=== PATIENT | male | born 1970 | race African-American/Black ===

== ENCOUNTER 2018-12-07 02:09 | Emergency (ER) | payer BC ==
[~2018-12-07] VITALS: Ht 185.4 cm; Wt 104.3 kg
[~2018-12-07 02:09] MED LIST: ACETAMINOPHEN-120 ML PO; CLARITIN10 M2 PO; FLONASE 0.05%50 MCG NASAL; KEFLEX500 MG PO; LOTRIMIN30 GM TP; NOHOMEMEDICATIONS; NORCO 5-325 TA1 EACH PO; PHENERGAN 25 MG25 M1 PO; VENTOLIN17 GM INH
[2018-12-07] MEDS ORDERED: IBUPROFEN 200200 M1 PO (02:56)
[2018-12-07] MEDS ORDERED: ATHLETE'S FOOT24 GM TOP (03:15)
== END 2018-12-07 03:33 | disposition home or self-care (01) ==
LOC: ER 02:09
DX: B35.3 Tinea pedis (principal)

== ENCOUNTER → 2019-11-08 | Outpatient (CLI) | payer BC ==
[~2019-11-08] MED LIST changes: +ATHLETE'S FOOT24 GM TOP; +IBUPROFEN 200200 M1 PO
== END ==
LOC: CAT 10:52
DX: N28.1 Cyst of kidney, acquired (principal); N42.89 Other specified disorders of prostate; I25.10 Atherosclerotic heart disease of native coronary artery without angina pectoris

== ENCOUNTER → 2020-02-20 | Outpatient (CLI) | payer OTHER | LOC: LAB 08:38 | PROVIDERS: ATTEND Family Medicine | DX: Z20.828 Contact with and (suspected) exposure to other viral communicable diseases (principal) ==

== ENCOUNTER → 2021-03-07 | Outpatient (CLI) | payer OTHER | LOC: CAT 14:11 | PROVIDERS: ATTEND Family Medicine | DX: N28.1 Cyst of kidney, acquired (principal); N42.89 Other specified disorders of prostate; R10.32 Left lower quadrant pain ==

== ENCOUNTER 2021-03-12 11:43 | Emergency (ER) | payer BC ==
[~2021-03-12] VITALS: Ht 185.4 cm; Wt 97.5 kg
[2021-03-12 12:23] LABS: ABSOLUTE NEUTROPHILS 2.3 thou/uL (1.4-8.2); BASOPHILS 0.9 % (0.0-2.0); EOSINOPHILS 2.6 % (0.0-3.0); HEMATOCRIT 40.4 % (42.0-52.0); HEMOGLOBIN 13.6 gm/dL (14.0-18.0); LYMPHOCYTES 36.1 % (24.0-44.0); MCH 29.3 pg (26.0-34.0); MCHC 33.7 g/dL (28.0-37.0); MCV 87.2 fL (80.0-100.0); MONOCYTES 7.1 % (1.0-8.0); PLATELET COUNT 185 thou/uL (150-400); POLYS 53.3 % (36.0-66.0); RBC 4.63 mil/uL (4.50-6.00); RDW 13.1 % (10.5-14.5); WBC 4.2 thou/uL (4.0-11.0)
[2021-03-12 12:35] LABS: CALCIUM 8.7 mg/dL (8.5-10.1); CREATININE 1.4 mg/dL (0.7-1.3)
[2021-03-12 12:36] LABS: POTASSIUM 4.8 mmol/L (3.5-5.1)
[2021-03-12 12:45] LABS: ALBUMIN 3.4 g/dL (3.4-5.0); TOTAL BILIRUBIN 0.9 mg/dL (0.2-1.0); TOTAL PROTEIN 7.2 g/dL (6.4-8.2)
[2021-03-12 13:40] VITALS: BP 136/95
--- NOTE | 2021-03-12 13:56 | EKG ---
[place] [address] [facility] [place] [address] ELECTROCARDIOGRAM REPORT Name: BJORN BETTENCOURT Room #: REG [facility] [id number] Admission: 03/12/21 Attend Phys: Discharge: Date of : 66 Report #: [id number] [facility] ED Test Date: 2021-03-12 Test Time: 11:51:19 Pat Name: BJORN BETTENCOURT Department: Room: Gender: M Para Operator: MERLE : 1970 Requested By: Jose Camejo Order Number: [id number] MD: Patrick Woods Measurements Intervals [place] Rate: 72 P: 65 NE: 140 QRS: 42 QRSD: 90 T: 39 QT: 384 QTc: 421 Interpretive Statements Sinus rhythm ST elev, probable normal early repol pattern Compared to ECG 09/01/2011 06:57:13 ST (T wave) deviation now present Early repolarization no longer present Electronically Signed On 03-12-2021 13:55:50 CDT by Patrick Woods [email or web address] <ELECTRONICALLY SIGNED> By: Patrick Woods MD, FAC 03/12/21 1355 1151 1151 Patrick Woods MD, FACC /EPI
== END 2021-03-12 13:46 | disposition home or self-care (01) ==
LOC: ER 11:43
PROVIDERS: Emergency Medicine
DX: R07.89 Other chest pain (principal); I48.91 Unspecified atrial fibrillation; E11.9 Type 2 diabetes mellitus without complications; I10 Essential (primary) hypertension; E78.5 Hyperlipidemia, unspecified; F17.210 Nicotine dependence, cigarettes, uncomplicated; Z85.828 Personal history of other malignant neoplasm of skin